=== PATIENT | female | born 1995 ===

== ENCOUNTER 2020-12-31 17:42 | Outpatient (CLI) | payer OTHER, SELFPAY | END 2020-12-31 17:43 | disposition home or self-care (01) | LOC: ANHCOVIDVC 17:42 | DX: Z23 Encounter for immunization (principal) | CPT/HCPCS: 0001A; 91300 ==

== ENCOUNTER 2021-01-21 15:48 | Outpatient (CLI) | payer OTHER, SELFPAY | END 2021-01-21 15:49 | disposition home or self-care (01) | LOC: ANHCOVIDVC 15:49 | DX: Z23 Encounter for immunization (principal) | CPT/HCPCS: 0002A; 91300 ==